=== PATIENT | female | born 1945 | race Hispanic/Latino ===

== ENCOUNTER 2024-09-27 11:38 | Emergency (ER) | payer MEDICARE ==
[~2024-09-27] VITALS: Ht 158.8 cm; Wt 75.1 kg
[2024-09-27 11:40] VITALS: PULSE 84; RESP 16; TEMP 98.8; O2SAT 98
[2024-09-27] MEDS ORDERED: AZITHROMYCIN250 MG PO (12:13)
[2024-09-27] MEDS ORDERED: VENTOLIN HFA18 GM INH (12:13)
[2024-09-27] MEDS ORDERED: PAXLOVID 150-11 EAC2 PO (12:13)
== END 2024-09-27 12:21 | disposition home or self-care (01) ==
LOC: FSED 11:42
DX: R05.9 Cough, unspecified (principal); U07.1 COVID-19; R51.9 Headache, unspecified; I10 Essential (primary) hypertension
CPT/HCPCS: 0223U; 83518; 87400; 99284